=== PATIENT | male | born 2000 | race Caucasian/White ===

== ENCOUNTER 2024-07-12 13:15 | Outpatient (AMB) | payer OTHER, SELFPAY ==
--- NOTE | 2024-07-12 13:24 | MHC.PC.OV ---
Vital Signs 07/12/24 13:25 Height 5 ft 11 in Weight 225 lb BMI 31.4 BP 114/70 Blood Pressure Location Lt brachial Position Sitting Respiration 12 Pulse 90 Pulse Source Pulse Oximeter Pulse Oximetry (%) 98 Oxygen Delivery Method Room Air Intake Visit Reasons: Establish care Intake Note: Patient is here to establish care. Patient reports he has no concerns at this time. Dental Technologist Required: No Accompanied by: Self / Same As Patient Allergies Penicillins Allergy (Severe, Verified 07/12/24 13:32) Anaphylaxis Tobacco use date assessed: 07/12/24 Dental Screening Dental Screen Date: 07/12/24 Did you have a dental visit in the last 12 months?: Yes Did you have a dental problem in the last 6 months where you did not have access to dental care?: No Was dental information given to patient?: Patient has dentist HPI HPI Comments History of Present Illness Details 23 year old male with a past medical history of beta thalassemia, psoriasis, [facility]. Following with dermatology for psoriasis, Dr Antonio. On tremfya ROS CONSTITUTIONAL: Denies weight loss, fever and chills. HEENT: Denies changes in vision and hearing. RESPIRATORY: Denies SOB and cough. CV: Denies palpitations and CP GI: Denies abdominal pain, nausea, vomiting and diarrhea. : Denies dysuria and urinary frequency. MSK: Denies new myalgia and joint pain. SKIN: Denies rash and pruritus. NEUROLOGICAL: Denies headache PSYCHIATRIC: Denies recent changes in mood. PHYSICAL EXAM: GENERAL: Alert and oriented x 3. NAD EYES: EOMI. Anicteric. HENT: Moist mucous membranes. No scleral icterus. No cervical lymphadenopathy. LUNGS: Clear to auscultation bilaterally. CARDIOVASCULAR: Regular rate and rhythm. No murmur. No JVD. ABDOMEN: Soft, non-tender +bs EXTREMITIES: No edema. Non-tender. SKIN: No rashes or lesions. Warm. NEUROLOGIC: No focal neurological deficits. CN II-XII grossly intact PSYCHIATRIC: Cooperative. Appropriate mood and affect [facility] Medical History (Updated 07/12/24 @ 13:49 by Alma Rosa Lawson MD) Psoriasis Surgical History (Updated 07/12/24 @ 13:36 by Cinda Muñoz CMA) No pertinent past surgical history Social History (Updated 07/12/24 @ 13:35 by Cinda Muñoz [facility]) Household Members: Other Household Members Other:: off campus room mates Housing: Apartment Are you a primary manager intensive care unit to a significant other at home: No Do you presently have visiting nurse or other home services: No 75 years or older and lives alone: No Patient Tobacco Use Status: Never used Tobacco e-Cigarette/Vaping Use: Never Used service: No Current occupational status: employed Current occupation: [employer] Current occupational exposures/hazards: No Cognitive needs: No Hearing needs: No Vision needs: No Questionnaire PHQ-9 Over the last 2 weeks, how often have you been bothered by any of the following problems? 1. Little interest or pleasure in doing things: not at all 2. Feeling down, depressed, or hopeless: not at all 3. Trouble falling or staying asleep, or sleeping too much: not at all 4. Feeling tired or having little energy: not at all 5. Poor appetite or overeating: not at all 6. Feeling bad about yourself - or that you are a failure or have let yourself or your family down: not at all 7. Trouble concentrating on things, such as reading the newspaper or watching television: not at all 8. Moving or speaking so slowly that other people could have noticed. Or the opposite - being so fidgety or restless that you have been moving around a lot more than usual: not at all 9. Thoughts that you would be better off or of hurting yourself in some way: not at all Total score: 0 Depression Screening Interpretation: Negative Depression Screening Done: Yes 51923 - PHQ-9 Billing: Yes Source: Developed by Drs. Boy Alcocer, Lauren Eaton, Zheng Lowery and colleagues, with an educational maggy from [employer]. Thrive Questionnaire Date Thrive assessed: 07/12/24 I am a: Patient What is your living situation today?: I have a steady place to live Within the past 12 months, did the food you bought not last and you didn't have the money to get more?: Never true Within the past 12 months, did you worry whether your food would run out before you got money to buy more?: Never true Do you have trouble paying for medicines?: No Do you have trouble getting transportation to medical appointments?: No Do you have trouble paying your heating and electricity bill?: No Do you have trouble taking care of your child, family member or friend?: No Do you have trouble with day-to-day activities such as bathing, preparing meals, shopping, managing finances, etc.?: No Are you currently unemployed and looking for a job?: No Are you interested in more education?: No Please select the resources that you would like help with: None Currently or been in a relationship where the following occur: No concerns reported THRIVE Score: 0 AUDIT C Alcohol Use Questionnaire (AUDIT-C) 1. How often do you have a drink containing alcohol?: Monthly or less 2. How many drinks containing alcohol do you have on a typical day when you are drinking?: 3 or 4 3. How often do you have six or more drinks on one occasion?: Never Total Score: 2 BUD-7 AMB Questionnaire BUD-7 Date BUD - 7 assessed: 07/12/24 Feeling nervous, anxious, or on edge: 0 = Not at all Not being able to stop or control worryin = Not at all Worrying too much about different things: 0 = Not at all Trouble relaxin = Not at all Being so restless that it is hard to sit still: 0 = Not at all Feeling afraid as if something awful might happen: 0 = Not at all Source: Developed by Drs. Boy Alcocer, Lauren Eaton, Zheng Lowery and colleagues, with an educational maggy from [employer]. BUD-7 Assessment Billing BUD-7 Assessment Tool: BUD-7 Assessment 23253 Physical exam (Primary Care) Vital Signs: Last Vital Signs Pulse 90 07/12/24 13:25 Resp 12 07/12/24 13:25 BP 114/70 07/12/24 13:25 Pulse Ox 98 07/12/24 13:25 Oxygen Delivery Method Room Air 07/12/24 13:25 BMI result Body Mass Index 31.4 Tobacco/Smoking Status: Tobacco use Status Tobacco use date assessed 07/12/24 07/12/24 13:36 Patient Tobacco Use Status Never used Tobacco 07/12/24 13:36 e-Cigarette/Vaping Use Never Used 07/12/24 13:36 PHQ-9: PHQ-9 Score PHQ-9: Total score 0 07/12/24 13:40 Depression Screening Interpretation: Negative Thrive Assessment: Date of Thrive Assessment Date Thrive assessed 07/12/24 07/12/24 13:25 Currently or been in a relationship where the following occur: No concerns reported Assessment and Plan Assessment & Plan (1) Psoriasis: Code(s): L40.9 - Psoriasis, unspecified Plan: stable. continue dermatology follow up Coding Level of Care Code Est Pt Level 3 (66902) Diagnoses Psoriasis L40.9 Additional Codes BUD-7 Assessment Billing - BUD-7 Assessment Tool: BUD-7 Assessment 58465 ([id number])
[2024-07-12 13:25] VITALS: BP 114/70; PULSE 90; RESP 12; O2SAT 98; BMI 31.4
== END 2024-07-12 13:55 | disposition home or self-care (01) ==
PROVIDERS: PCP Internal Medicine; Visit Provider Internal Medicine
DX: L40.9 Psoriasis, unspecified (principal)
CPT/HCPCS: 99213

== ENCOUNTER 2025-07-17 08:38 | Outpatient (REF) | payer OTHER, SELFPAY ==
[2025-07-17 11:35] LABS: MANUAL DIFF FLAG NO
[2025-07-17 11:42] LABS: Hematocrit 39.2 % (42.0-52.0); Hemoglobin 12.2 g/dl (14.0-18.0); Imm Gran Abs Auto 0.02 X10*3/uL (0.00-0.03); Imm Gran Pct Auto 0.4 % (0.0-0.4); Lymphocytes Absolute Auto 1.0 X10*3/uL (1.2-4.9); Mean Corpuscular HGB Conc 31.1 g/dl (31.0-36.0); Mean Corpuscular Hemoglobin 19.8 pg (27.0-33.0); NRBC Abs Auto 0.000 X10*3/uL (0.0-0.012); NRBC Pct Auto 0.0 /100WBC (0.0-0.2); Platelet Count 193 X10*3/uL (160-400); Red Blood Count 6.15 X10*6/uL (4.60-5.80); White Blood Count 4.9 X10*3/uL (4.8-10.8)
[2025-07-17 11:43] LABS: Mean Corpuscular Volume 63.7 fL (80.0-98.0)
[2025-07-17 11:45] LABS: Total Hemoglobin (HGBA1C) 3242.8137 umol/L
[2025-07-17 11:57] LABS: Albumin Level 4.6 g/dL (3.5-5.0); Alkaline Phosphatase 93 U/L (39-117); Anion Gap 10 (12-20); Aspartate Amino Transferase 40 U/L (5-37); Blood Urea Nitrogen 18 mg/dL (9-16); Calcium 8.9 mg/dL (8.4-10.2); Carbon Dioxide 27 mmol/L (22-29); Chloride 106 mmol/L (96-108); Cholesterol 142 mg/dL (<200); Estimated Glomerular Filt Rate > 60; HDL Cholesterol 38 mg/dL (>40); Potassium 4.1 mmol/L (3.3-5.1); Sodium 139 mmol/L (135-145); Total Protein 6.9 g/dL (6.5-8.0); Triglycerides 72 mg/dL (<150)
[2025-07-17 12:17] LABS: Alanine Aminotransferase 61 U/L (0-40)
[2025-07-20 06:19] LABS: Quantiferon TB Gold Plus 1 NEGATIVE (NEGATIVE); TB Test (QFT) Mitogen -Nil 7.18 IU/mL; TB Test (QFT) Nil 0.01 IU/mL; TB Test (QFT) Plus TB1 -Nil 0.00 IU/mL; TB Test (QFT) Plus TB2 -Nil 0.00 IU/mL
== END 2025-07-17 08:39 | disposition home or self-care (01) ==
LOC: HO.WFDLDS 08:38
PROVIDERS: PCP Internal Medicine; Referring Provider Dermatology; Visit Provider Internal Medicine
DX: Z13.0 Encounter for screening for diseases of the blood and blood-forming organs and certain disorders involving the immune mechanism (principal); Z13.228 Encounter for screening for other metabolic disorders; Z13.220 Encounter for screening for lipoid disorders; Z00.00 Encounter for general adult medical examination without abnormal findings; R35.89 Other polyuria; L40.0 Psoriasis vulgaris; Z79.899 Other long term (current) drug therapy
CPT/HCPCS: 36415; 80053; 80061; 83036; 84443; 85025; 86480; 96127

== ENCOUNTER 2025-07-17 08:38 | Outpatient (AMB) | payer OTHER, SELFPAY ==
--- NOTE | 2025-07-17 08:41 | A.OFFPC_ITS ---
Vital Signs 07/17/25 08:49 Height 5 ft 11 in Weight 220 lb BMI 30.7 BP 111/54 L Blood Pressure Location Lt brachial Position Sitting Respiration 16 Pulse 68 Pulse Source Pulse Oximeter Temp 97.9 F Temp Source Temporal Artery Scan Pulse Oximetry (%) 100 Oxygen Delivery Method Room Air Intake Visit Reasons: physical Intake Note: patient here for CPE Waterworks Operator Required: No Allergies Penicillins Allergy (Severe, Verified 07/17/25 08:44) Anaphylaxis Tobacco use date assessed: 07/17/25 Dental Screening Dental Screen Date: 07/17/25 Did you have a dental visit in the last 12 months?: Yes Did you have a dental problem in the last 6 months where you did not have access to dental care?: No Was dental information given to patient?: Patient has dentist HPI HPI Comments History of Present Illness Details 24 year old male with a past medical his tory of beta thalassemia, psoriasis, presenting for CPE Following with dermatology for psoriasis, Dr Antonio. On tremfya. Overdue for labs ROS CONSTITUTIONAL: Denies weight loss, fever and chills. HEENT: Denies changes in vision and hearing. RESPIRATORY: Denies SOB and cough. CV: Denies palpitations and CP GI: Denies abdominal pain, nausea, vomiting and diarrhea. : Denies dysuria and urinary frequency. MSK: Denies new myalgia and joint pain. SKIN: Denies rash and pruritus. NEUROLOGICAL: Denies headache PSYCHIATRIC: Denies recent changes in mood. PHYSICAL EXAM: GENERAL: Alert and oriented x 3. NAD EYES: EOMI. Anicteric. HENT: Moist mucous membranes. No scleral icterus. No cervical lymphadenopathy. LUNGS: Clear to auscultation bilaterally. CARDIOVASCULAR: Regular rate and rhythm. No murmur. No JVD. : Normal penis and testes ABDOMEN: Soft, non-tender +bs EXTREMITIES: No edema. Non-tender. SKIN: No rashes or lesions. Warm. NEUROLOGIC: No focal neurological deficits. CN II-XII grossly intact PSYCHIATRIC: Cooperative. Appropriate mood and affect [facility] Medical History Psoriasis Surgical History No pertinent past surgical history Social History Household Members: Other Household Members Other:: off campus room mates Housing: Apartment Are you a primary care tech to a significant other at home: No Do you presently have visiting nurse or other home services: No 75 years or older and lives alone: No Patient Tobacco Use Status: Never used Tobacco e-Cigarette/Vaping Use: Never Used Second Hand Smoke Exposure: No service: No Current occupational status: employed Current occupation: [employer] Current occupational exposures/hazards: No Cognitive needs: No Hearing needs: No Vision needs: No Questionnaire PHQ-9 Over the last 2 weeks, how often have you been bothered by any of the following problems? 1. Little interest or pleasure in doing things: not at all 2. Feeling down, depressed, or hopeless: not at all 3. Trouble falling or staying asleep, or sleeping too much: not at all 4. Feeling tired or having little energy: not at all 5. Poor appetite or overeating: not at all 6. Feeling bad about yourself - or that you are a failure or have let yourself or your family down: not at all 7. Trouble concentrating on things, such as reading the newspaper or watching television: not at all 8. Moving or speaking so slowly that other people could have noticed. Or the opposite - being so fidgety or restless that you have been moving around a lot more than usual: not at all 9. Thoughts that you would be better off or of hurting yourself in some way: not at all Total score: 0 Depression Screening Interpretation: Negative Depression Screening Done: Yes 03924 - PHQ-9 Billing: Yes Source: Developed by Drs. Boy Alcocer, Lauren Eaton, Zheng Lowery and colleagues, with an educational maggy from [employer] Thrive Questionnaire Date Thrive assessed: 07/17/25 I am a: Patient What is your living situation today?: I have a steady place to live Within the past 12 months, did the food you bought not last and you didn't have the money to get more?: Never true Within the past 12 months, did you worry whether your food would run out before you got money to buy more?: Never true Do you have trouble paying for medicines?: No Do you have trouble getting transportation to medical appointments?: No Do you have trouble paying your heating and electricity bill?: No Do you have trouble taking care of your child, family member or friend?: No Do you have trouble with day-to-day activities such as bathing, preparing meals, shopping, managing finances, etc.?: No Are you currently unemployed and looking for a job?: No Are you interested in more education?: No Please select the resources that you would like help with: Education Currently or been in a relationship where the following occur: No concerns reported THRIVE Score: 0 AUDIT C Alcohol Use Questionnaire (AUDIT-C) 1. How often do you have a drink containing alcohol?: Monthly or less 2. How many drinks containing alcohol do you have on a typical day when you are drinking?: 3 or 4 3. How often do you have six or more drinks on one occasion?: Never Total Score: 2 BUD-7 AMB Questionnaire BUD-7 Date BUD - 7 assessed: 07/17/25 Feeling nervous, anxious, or on edge: 0 = Not at all Not being able to stop or control worryin = Not at all Worrying too much about different things: 0 = Not at all Trouble relaxin = Not at all Being so restless that it is hard to sit still: 0 = Not at all Becoming easily annoyed or irritable: 0 = Not at all Feeling afraid as if something awful might happen: 0 = Not at all Total BUD-7 score (0-4 normal; 5-9 mild; 10-14 moderate; 15-21 severe): 0 Source: Developed by Drs. Boy Alcocer, Lauren Eaton, Zheng Lowery and colleagues, with an educational maggy from [employer] BUD-7 Assessment Billing BUD-7 Assessment Tool: BUD-7 Assessment 45591 Physical exam (Primary Care) Vital Signs: Last Vital Signs Temp 97.9 F 07/17/25 08:49 Pulse 68 07/17/25 08:49 Resp 16 07/17/25 08:49 BP 111/54 L 07/17/25 08:49 Pulse Ox 100 07/17/25 08:49 Oxygen Delivery Method Room Air 07/17/25 08:49 BMI result Body Mass Index 30.7 Tobacco/Smoking Status: Tobacco use Status Tobacco use date assessed 07/17/25 07/17/25 08:45 Patient Tobacco Use Status Never used Tobacco 07/17/25 08:43 e-Cigarette/Vaping Use Never Used 07/17/25 08:43 PHQ-9: PHQ-9 Score PHQ-9: Total score 0 07/17/25 08:46 Depression Screening Interpretation: Negative Thrive Assessment: Date of Thrive Assessment Date Thrive assessed 07/17/25 07/17/25 08:43 Currently or been in a relationship where the following occur: No concerns reported Coding Level of Care Code Est Pt Prev Care 18-39y(14178) Diagnoses Physical exam Z00.00 Additional Codes BUD-7 Assessment Billing - BUD-7 Assessment Tool: BUD-7 Assessment 26095 ([id number]) PHQ-9 - 85212 - PHQ-9 Billing: Yes ([id number]) Assessment & Plan Assessment & Plan (1) Physical exam: Code(s): Z00.00 - Encounter for general adult medical examination without abnormal findings Plan CPE Interval history reviewed Psoriasis is stable preventive measures for age discussed Labs ordered Orders: Orders TSH reflex Free T4 Today L40.9 - Psoriasis, unspecified, R35.89 - Other polyuria, Z13.0 - Encounter for screening for diseases of the blood and blood- forming organs and certain disorders involving the immune mechanism, Z13.220 - Encounter for screening for lipoid disorders, Z13.228 - Encounter for screening for other metabolic disorders Hemoglobin A1c Today L40.9 - Psoriasis, unspecified, R35.89 - Other polyuria, Z13.0 - Encounter for screening for diseases of the blood and blood-forming organs and certain disorders involving the immune mechanism, Z13.220 - Encounter for screening for lipoid disorders, Z13.228 - Encounter for screening for other metabolic disorders Comprehensive Met. Panel Today L40.9 - Psoriasis, unspecified, R35.89 - Other polyuria, Z13.0 - Encounter for screening for diseases of the blood and blood- forming organs and certain disorders involving the immune mechanism, Z13.220 - Encounter for screening for lipoid disorders, Z13.228 - Encounter for screening for other metabolic disorders Lipid Panel Today L40.9 - Psoriasis, unspecified, R35.89 - Other polyuria, Z13.0 - Encounter for screening for diseases of the blood and blood-forming organs and certain disorders involving the immune mechanism, Z13.220 - Encounter for screening for lipoid disorders, Z13.228 - Encounter for screening for other metabolic disorders Complete Blood Count Auto Diff Today L40.9 - Psoriasis, unspecified, R35.89 - Other polyuria, Z13.0 - Encounter for screening for diseases of the blood and blood-forming organs and certain disorders involving the immune mechanism, Z13.220 - Encounter for screening for lipoid disorders, Z13.228 - Encounter for screening for other metabolic disorders
[2025-07-17 08:49] VITALS: BP 111/54; PULSE 68; RESP 16; TEMP 36.6; O2SAT 100; BMI 30.7
--- OUTSIDE RECORDS SUMMARY | 2025-07-17 09:41 | XMS_ITS | Encounter Summary ---
Author Organization [facility] Address [address] [place] [address] Phone Care Team Providers Care Community Development Aide Name Role Phone Kamari Menchaca MD Primary Care Provider [phone] Encounter Details Date Type Department Care Team (Late st Contact Info) Description 12/17/2009 Documentation [facility] [place] Family Medicine [address] [place], [place] [id number] Family Medicine, Physician [address] [place], [place] [id number] Social History Tobacco Use Types Packs/Day Years Used Date Smoking Tobacco: Never Assessed Sex and Gender Information Value Date Recorded Sex Assigned at Not on file Legal Sex Male 6:09 PM EDT Gender Identity Not on file Sexual Orientation Not on file documented as of this encounter Plan of Treatment Not on file documented as of this encounter Visit Diagnoses Not on filedocumented in this encounter Care Teams Community Development Aide Relationship Specialty Start Date End Date Kamari Menchaca MD [address] [place] [address] PCP - General 03/14/18 08/20/24 documented as of this encounter
--- OUTSIDE RECORDS SUMMARY | 2025-07-17 09:41 | XMS_ITS | Encounter Summary ---
Author Organization [facility] Address [address] [place] [address] Phone Care Team Providers Care Ag Service Manager Name Role Phone Kamari Menchaca MD Primary Care Provider + [phone] Encounter Details Date Type Department Care Team (Late st Contact Info) Description 03/25/2018 Conversion Encounter [id number] [place] [address] Kamari Menchaca MD [address] [place] [id number] Social History Tobacco Use Types Packs/Day Years [...] on filedocumented in this encounter Care Teams Ag Service Manager Relationship Specialty Start Date End Date Kamari Menchaca MD [address] [place] [address] PCP - General 03/14/18 08/20/24 documented as of this encounter
--- OUTSIDE RECORDS SUMMARY | 2025-07-17 09:41 | XMS_ITS | Clinical Summary ---
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 Active Elastic Bandages & Supports (Knee Brace Adjustable Hinged) miscIndications :Pain and swelling of right knee Ut dict 1 each 04/20/2021 Active Guselkumab (TREMFYA SC) Inject 100 mg under the skin. 04/12/2022 Active Active Problems Problem Noted Date Diagnosed Date Immunosuppression 04/20/2022 Beta thalassemia trait 04/20/2022 Overview (05/22/2022): Dx'd 04/27 with mildly enlarged spleen 05/27. Assessment & Plan (05/24/2022 3:58 PM EDT): Discussed and no further action is needed. Assessment & Plan (04/20/2022 7:43 AM EDT): Noted to have hemoglobin of 11.4 in hospital; will plan to repeat as outpatient and to check hemoglobin electrophoresis as mom has thalassemia. Splenomegaly 04/20/2022 Overview (05/23/2022): Noted on CXR when hospitalized 04/27 05/27 (U/S): mildly enlarged spleen. Assessment & Plan (04/20/2022 7:51 AM EDT): Will plan to check U/S at 4 weeks. Weight loss 04/20/2022 Assessment & Plan (05/24/2022 3:59 PM EDT): Has maintained weight and appears to be eating healthy with lots of exercise. Plan to recheck as WCC, needs scheduled. Assessment & Plan (04/20/2022 9:52 AM EDT): Partially due to better diet and exercise, and some due to illness; will plan to recheck in one month. BMI greater than 95% for age [Z68.54] 01/04/2021 Overview (03/11/2021): 03/10/21: HIV: negative TSH: normal; Glucose: normal; AST: normal; ALT: high at 44 (likely due to recent mono infection) Chol 147; HDL 32 Assessment & Plan (01/04/2021 1:26 PM EST): Work on diet and exercise. Ordered labs. Psoriasis 09/22/2017 Overview (09/25/2022): Seen by derm 09/23. And 07/25, on Stelara injections. Seen by derm 03/2020 and 06/2020, and 12/28. 09/27: on Tremfya per derm. Assessment & Plan (04/20/2022 7:44 AM EDT): Hold off on injectable immunosuppressant until full resolution of pneumonia symptoms; to follow up with dermatology. Assessment & Plan (01/04/2021 1:27 PM EST): Follow up with derm as planned. Assessment & Plan (01/01/2020 10:02 AM EST): F/u with derm as planned. Resolved Problems Problem Noted Date Diagnosed Date Resolved Date Other microscopic hematuria 04/20/2022 05/24/2022 Assessment & Plan (04/20/2022 7:45 AM EDT): Plan to recheck U/A with labs. Right bundle branch block (RBBB) 04/20/2022 05/24/2022 Overview (05/03/2022): Noted on EKG in hospital; 04/27: seen in follow up with cardiology: no RBBB, to get ECHO Assessment & Plan (04/20/2022 7:48 AM EDT): Will refer to cardiology, will ask Clinical Enrollment Specialist to set up appointment. Community acquired pneumonia of right middle lobe of lung 04/13/2022 05/24/2022 Overview (04/14/2022): Admitted 04/27: dx'd with pneumonia Assessment & Plan (04/20/2022 10:02 AM EDT): Will plan to finish abx course and continue to follow for resolution of symptoms. Recheck for no resolution of sx or concerns. Not able to get GC testing suggested by hospitalist as we don't have appropriate swabs in the office. Body mass index (BMI) of 85t h to 94.9th percentile 01/01/2020 01/04/2021 Assessment & Plan (01/01/2020 10:16 AM EST): Increased significantly since last WCC, need to work on diet and exercise, discussed. Immunizations Immunization Administration Dates Next Due DTaP 01/10/2008, 6,05/01/2003,03/10,01/20/2003 HPV Vaccine 9 Valent 01/04/2021,01/01/2020 Hep A, ped/adol 01/04/2021,01/01/2020 Hep B, ped/adol 10/21/2003,2002,2002 Hib (PRP-T) 07/13/2006, 3,03/10/2003,01/20 IPV 01/10/2008, 3,03/10/2003,01/20 Influenza, injectable, quadrivalent 01/06/2016 Influenza, injectable, quadr ivalent, preservative free 07/14/2020,01/01/2020,08/10/2018,09/22,07/05/2013 Influenza, injectable, trivalent 09/22/2017,03/0 12/2015 MMR 07/15/2008,12/30/2003 Meningococcal Conj (Menactra) MCV4P 01/01/2020,0 01/06/2016 Meningococcal Conjugate 01/06/2016 Pneumococcal Conjugate 09/07/2004,2002,03/10/2003,01/20 Tdap 05/25/2013 Varicella 01/10/2008,12/30/2003 Family History Medical History Relation Name Comments Hypertension Father Prostate cancer Maternal Grandfather Cancer Maternal Grandmother No Known Problems Mother Cancer Paternal Grandfather Irritable bowel syndrome Sister Lorena Aguilar Relation Name Status Comments Father Alive hypertension ar thritis age: 55 diagnosed with Hypertension Maternal Grandfather Alive problem s Maternal Grandmother cancer age: 60 diagnosed with MALIGNANT NEOPLASM NOS Mother Alive hx of nephrecto my due to repeat UTI as a child age: 49 Other Alive Siblings: healt hy age: 18 Paternal Grandfather cancer diagnosed with MALIGNANT NEOPLASM NOS Paternal Grandmother Alive cancer diagnosed with MALIGNANT NEOPLASM NOS Sister Lorena Aguilar Alive Social History Tobacco Use Types Packs/Day Years Used Date Smoking Tobacco: Never Smokeless Tobacco: Never Hunger/Food Answer Date Recorded In the last 12 months, did y ou or your family ever eat less than you felt you should because there wasn't enough money for food? No 01/04/2021 Stable Housing Answer Date Recorded Are you worried that in the next 2 months you may not have stable housing? No 01/04/2021 Transportation Concerns Answer Date Rec orded In the last 12 months, have you or your family ever had to go without healthcare because you didn't have a way to get there? No 01/04/2021 Hazards in Home Answer Date Recorded Think about the place you li ve. Do you have problems with any of the following? Pests (mice or roaches), mold, no/not working smoke detectors, water leaks, no window guards. No 2020 Financing Utilities Answer Date Recorde d In the last 12 months, has t he electric, gas, oil, or water company threatened to shut off your services in your home? No 01/04/2021 Safety at Home Answer Date Recorded Are you or your family worried about feeling saf e in your home? No 01/04/2021 Outside Support Answer Date Recorded Do you feel that you need mo re support from other people or programs to help you care for yourself or your family? No 01/04/2021 Understanding Health Concerns Answer Da te Recorded Do you need help understandi ng your or your child's healthcare needs (diagnosis, medications, plan, etc.)? No 01/04/2021 Financing Health Concerns Answer Date R ecorded In the last 12 months, was t here a time when your child needed to see a doctor or get medications or supplies but could not because of cost? No 01/04/2021 Missing School or Work Answer Date Paolo rded Did you or your child miss s chool or work because of a health problem that could have been avoided? No 01/04/2021 Sex and Gender Information Value Date Recorded Sex Assigned at Not on file Legal Sex Male 6:09 PM EDT Gender Identity Not on file Sexual Orientation Not on file Last Filed Vital Signs Vital Sign Reading Time Taken Comments Blood Pressure 104/66 05/24/2022 3:42 PM EDT Pulse 77 12/15/2017 12:00 AM EST Temperature 36.8 C (98.3 F) 04/20/2022 9:24 AM EDT Respiratory Rate - - Oxygen Saturation 100% 12/15/2017 12:00 AM EST Inhaled Oxygen Concentration - - Weight 85.4 kg (188 lb 4 oz) 05/24/2022 3:42 PM EDT Height 179.1 cm (5' 10.5 ) 04/20/2021 9:32 AM ED T Body Mass Index 26.63 04/20/2021 9:32 AM EDT Plan of Treatment Health Maintenance Due Date Last Done Comments Men B Vaccine (1 of 2 - Standard) 2018 HPV Vaccines (3 - Male 3-dos e series) 03/29/2021 01/04/2021, 01/01/2020 Influenza Vaccines (#1) 2025 07/14/20 20, 01/01/2020, 08/10/2018, Additional history exists COVID-19 Vaccine (3 - 2024-2 6 season) 2025 06/04/2021, 05/05/2021 DTaP,Tdap,and Td Vaccines (8 - Td or Tdap) 09/05/2033 09/05/2023, 05/25/2013, 01/10/2008, Additional history exists Hepatitis B Vaccines Completed 10/21/2003, 2002, 2002 Pneumococcal Vaccine Completed 09/07/2004, 05/01/2003, 03/10/2003, Additional history exists HIB Vaccines Completed 07/13/2006, 04/07, 03/10/2003, Additional history exists IPV Vaccines Completed 01/10/2008, 10/06, 03/10/2003, Additional history exists Varicella Vaccines Completed 01/10/2008, 12/30/2003 MMR Vaccines Completed 07/15/2008, 12/30/2003 Meningococcal Vaccine Completed 01/01/2020 , 01/06/2016, 01/06/2016 Hepatitis A Vaccines Completed 01/04/2021, 01/01/[address] [place] [address] [place] [address] BLUE CARD OUT OF STATE
== END 2025-07-17 09:01 | disposition home or self-care (01) ==
LOC: HO.HMCFM 08:38
PROVIDERS: PCP Internal Medicine; Visit Provider Internal Medicine
DX: Z00.00 Encounter for general adult medical examination without abnormal findings (principal)